=== PATIENT | female | born 1980 | race Caucasian/White ===

== ENCOUNTER 2024-06-08 08:58 | Emergency (ER) | payer SELFPAY ==
[~2024-06-08] VITALS: Ht 167.6 cm; Wt 81.2 kg
[2024-06-08 10:22] VITALS: BP 131/94
[2024-06-08] MEDS ORDERED: PENICILLIN VK500 MG PO (12:05)
== END 2024-06-08 12:16 | disposition home or self-care (01) ==
LOC: ED 08:58
DX: K04.7 Periapical abscess without sinus (principal)